=== PATIENT | male | born 2000 | race Caucasian/White ===

== ENCOUNTER 2020-07-05 12:47 | Outpatient (CLI) | payer BC, SELFPAY ==
[2020-07-05 14:05] LABS: SARS-CoV-2 Ag Negative (Negative)
== END 2020-07-05 12:48 | disposition home or self-care (01) ==
PROVIDERS: PCP Internal Medicine; Visit Provider Internal Medicine
DX: Z20.828 Contact with and (suspected) exposure to other viral communicable diseases (principal)
CPT/HCPCS: 87426